=== PATIENT | female | born 1970 | race Caucasian/White ===

== ENCOUNTER 2020-07-26 15:32 | Observation (INO) ==
[2020-07-26] MEDS ORDERED: Promethazine 6.25 MG in Water for inj. (sterile) 20 ML IVPB PRN (19:15)
[2020-07-26] MEDS ORDERED: *HR* OxyCODONE Immed Rel 5 MG TABLET PO PRN (19:15)
[2020-07-26] MEDS ORDERED: Ondansetron 4 MG/2 ML VIAL IVP PRN ×2 (19:15→23:36)
[2020-07-26] MEDS ORDERED: Vancomycin 1,000 MG in Sodium Chloride IRRigation 250 ML IR ONE (19:28)
[2020-07-26] MEDS ORDERED: Piperacillin/Tazobactam 3.375 GM in 0.9 % Sodium Chloride Mini Bag 100 ML IVPB ONE (19:29)
[2020-07-26] MEDS ORDERED: *HR* Midazolam HCl 2 MG/2 ML VIAL ONE (19:32)
[2020-07-26] MEDS ORDERED: *HR* FentaNYL (PF) 100 MCG/2 ML VIAL ONE ×2 (19:32→20:44)
[2020-07-26] MEDS ORDERED: Bupivacaine 0.5%-Epi 1:200,000 50 ML VIAL ONE (19:41)
[2020-07-26] MEDS ORDERED: MethylPREDNISolone Acet(DEPOT) 80 MG/ML VIAL ONE (19:41)
[2020-07-26] MEDS ORDERED: Vancomycin 1,000 MG VIAL ONE (19:53)
[2020-07-26] MEDS ORDERED: Lidocaine -MPF 2% 5 ML VIAL ONE (20:02)
[2020-07-26] MEDS: *HR* HYDROmorphone PF 0.5 MG/0.5 ML SYRINGE IVP PRN ×3 (21:29→21:52)
[2020-07-26] MEDS ORDERED: Acetaminophen IV 1,000 MG/100 ML BAG IVPB ONE (22:00)
[2020-07-26] MEDS ORDERED: Vancomycin 1,000 MG VIAL IVPB SCH (22:00)
[2020-07-26 23:32] LABS: BUN/Creatinine Ratio 19 (6-26); Blood Urea Nitrogen 10 mg/dL (6-20); eGFR For African Americans > 60 (> 60); eGFR For Non-African Americans > 60 (> 60)
[2020-07-26] MEDS ORDERED: *HR* Metoprolol 5 MG/5 ML VIAL IVP ONE (23:34)
[2020-07-26] MEDS ORDERED: Naloxone 0.4 MG/ML INJ IVP PRN (23:36)
[2020-07-26] MEDS ORDERED: *HR* Dextrose 50 % in Water (Vial) 50 ML VIAL IVP PRN (23:41)
[2020-07-26] MEDS ORDERED: D5% in Water 1,000 ML IVC PRN (23:41)
[2020-07-26] MEDS ORDERED: Dextrose Gel 15 GM/37.5 ML TUBE PO PRN ×2 (23:41)
[2020-07-26] MEDS ORDERED: Insulin LISPRO 300 UNITS/3 ML VIAL SUBQ SCH (23:45)
[2020-07-26] MEDS: Ketorolac 30 MG/ML VIAL IVP PRN (23:50)
[2020-07-27] MEDS: Ringers Solution, Lactated 1,000 ML IVC SCH ×2 (00:02→11:58)
[2020-07-27 04:52] LABS: Estimated Average Glucose 154 mg/dl
[2020-07-27 04:54] LABS: Mean Corpuscular HGB Conc 33.3 g/dL (31.6-35.5); Mean Corpuscular Hemoglobin 33.4 pg (28.0-33.3); Mean Corpuscular Volume 100.3 fL (83.0-100.0); Mean Platelet Volume 10.1 fL (9.4-12.4); Platelet Count 314 K/mcL (140-400); Red Blood Count 3.89 M/mcL (3.82-4.97); Red Cell Distribution Width 11.8 % (11.5-14.5); White Blood Count 11.2 K/mcL (4.3-11.1)
[2020-07-27 05:09] LABS: BUN/Creatinine Ratio 19 (6-26); Blood Urea Nitrogen 10 mg/dL (6-20); Calcium 8.9 mg/dL (8.6-10.3); Carbon Dioxide 24 mEq/L (23-29); Chloride 107 mEq/L (98-107); Chol/HDL Ratio 6.5 (0-4.9); Cholesterol 176 mg/dL (< 200); Glucose 185 mg/dL (70-105); HDL Cholesterol 27 mg/dL (40-59); LDL Cholesterol,Calculated 123 mg/dL (< 100); Magnesium 2.1 mg/dL (1.6-2.6); Osmolality,Calculated 290 (280-300); Potassium 3.8 mEq/L (3.5-5.1); Sodium 138 mEq/L (136-145); Triglycerides 130 mg/dL (< 150); eGFR For African Americans > 60 (> 60); eGFR For Non-African Americans > 60 (> 60)
[2020-07-27] MEDS ORDERED: *HR* Enoxaparin 40 MG/0.4 ML SYRINGE SQ SCH (06:00)
[2020-07-27] MEDS: Ketorolac 30 MG/ML VIAL IVP PRN (07:42)
[2020-07-27] MEDS: Insulin LISPRO 300 UNITS/3 ML VIAL SUBQ SCH ×2 (07:43→12:49)
[2020-07-27] MEDS ORDERED: Piperacillin/Tazobactam 3.375 GM in 0.9 % Sodium Chloride Mini Bag 100 ML IVPB SCH (08:00)
[2020-07-27] MEDS ORDERED: Vancomycin 1,750 MG/517.5 ML IV.SOLN IVPB SCH (09:00)
[2020-07-27 10:35] VITALS: BP 103/68
[2020-07-27] MEDS ORDERED: *HR* HYDROcodone/Acet 10/325 mg TABLET PO PRN ×2 (10:43)
[2020-07-27] MEDS ORDERED: Nicotine 21 MG PATCH.TD24 TD SCH (11:00)
[2020-07-27] MEDS ORDERED: Acetaminophen IV 1,000 MG/100 ML BAG IVPB ONE (21:55)
== END 2020-07-27 13:50 | disposition home or self-care (01) ==
LOC: 3BNU → SUATTDRO 18:22
PROVIDERS: ADMIT Internal Medicine; ATTEND Internal Medicine